=== PATIENT | male | born 1980 ===

== ENCOUNTER 2016-06-15 15:17 | Inpatient (IN) | payer OTHER ==
--- NOTE | 2016-06-15 15:44 | ED PDOC ---
Arrival/HPI <Paco Gloria - Last Filed: 06/15/16 17:25> <Navin Sahni - Last Filed: 06/15/16 19:29> - General Chief Complaint: Medical Clearance Time Seen by Provider: 06/15/16 15:20 - History of Present Illness Narrative History of Present Illness (Text): 06/15/16 15:20 35 y/o male, no pmh, nkda, c/o lt. sided facial weakness with unable to puff the cheek with slurred speech x 3 days with no head or facial injury. Pt. stated that he feels fine but the lt. sided facial cheek is unable to puff completely with slurred speech but no difficulty to though process, no numbness or tingling, no change in the taste, no dizziness or headache, no palpitation, no insect bites or traveling outside of the [facility] for the past 2 months, no fever or chills, no night sweat, no dizziness, no rash, no other medical or psychological complaints. (Navin Sahni) Past Medical History - Provider Review Nursing Documentation Reviewed: Yes - Infectious Disease Hx of Infectious Diseases: None - Psychiatric Hx Substance Use: No <Navin Sahni - Last Filed: 06/15/16 19:29> Family/Social History - Physician Review Nursing Documentation Reviewed: Yes Family/Social History: Unknown Family HX Smoking Status: Light Smoker < 10 Cigarettes Daily Hx Alcohol Use: Yes Frequency of alcohol use: Socially Hx Substance Use: No <Navin Sahni - Last Filed: 06/15/16 19:29> Allergies/Home Meds <Paco Gloria - Last Filed: 06/15/16 17:25> <Navin Sahni - Last Filed: 06/15/16 19:29> Allergies/Adverse Reactions: Allergies No Known Allergies Allergy (Verified 06/15/16 15:20) Home Medications: Home Meds Medication Instructions Recorded Confirmed No Known Home Med 06/15/16 06/15/16 Review of Systems - Review of Systems Constitutional: absent: Fatigue, Fevers Eyes: absent: Vision Changes ENT: absent: Hearing Changes Respiratory: absent: Cough, Sputum Cardiovascular: absent: Chest Pain Gastrointestinal: absent: Abdominal Pain, Nausea, Vomiting Musculoskeletal: absent: Arthralgias, Back Pain, Neck Pain, Joint Swelling, Myalgias Neurological: Focal Weakness, Facial Droop. absent: Headache, Dizziness, Gait Changes, Speech Changes, Disequilibrium, Seizure Endocrine: absent: Diaphoresis Hemo/Lymphatic: absent: Adenopathy <Navin Sahni - Last Filed: 06/15/16 19:29> Physical Exam Vital Signs Reviewed: Yes Temperature: Afebrile Blood Pressure: Normal Pulse: Regular Respiratory Rate: Normal Appearance: Positive for: Well-Appearing, Non-Toxic, Comfortable Pain Distress: None Mental Status: Positive for: Alert and Oriented X 3 - Systems Exam Head: Present: Atraumatic, Normocephalic Pupils: Present: PERRL Extroacular Muscles: Present: EOMI Conjunctiva: Present: Normal Mouth: Present: Moist Mucous Membranes Nose (External): Present: Atraumatic. No: Abrasion, Contusion, Laceration Nose (Internal): Present: Normal Inspection, No Active Bleeding. No: Rhinorrhea , Septal Hematoma, Epistaxis Neck: Present: Normal Range of Motion, Trachea Midline. No: MIDLINE TENDERNESS , Lymphadenopathy Respiratory/Chest: Present: Clear to Auscultation, Good Air Exchange. No: Respiratory Distress, Accessory Muscle Use Cardiovascular: Present: Regular Rate and Rhythm, Normal S1, S2. No: Murmurs Abdomen: Present: Normal Bowel Sounds. No: Tenderness, Distention, Peritoneal Signs, Rebound, Guarding Back: Present: Normal Inspection Upper Extremity: Present: Normal Inspection. No: Cyanosis, Edema Lower Extremity: Present: Normal Inspection. No: Edema Neurological: Present: GCS=15, Motor Func Grossly Intact, Gait Normal, Memory Normal, Other (unable to puff the left facial cheek and there is leaking air, there is no tongue deviation. ). No: Speech Normal (mild slurred speech) Skin: Present: Warm, Dry, Normal Color. No: Rashes Psychiatric: Present: Alert, Oriented x 3, Normal Insight, Normal Concentration <Navin Sahni - Last Filed: 06/15/16 19:29> Vital Signs Temp Pulse Resp BP Pulse Ox 06/15/16 18:26 65 16 136/72 99 06/15/16 16:59 71 16 125/74 99 06/15/16 15:18 98.4 F 75 16 129/76 99 Medical Decision Making <Paco Gloria - Last Filed: 06/15/16 17:25> - Lab Interpretations I have reviewed the lab results: Yes Interpretation: Abnormal lab values (CK 541) - RAD Interpretation Otolaryngology Rep: Radiologist - EKG Interpretation Interpreted by ED Physician: Yes Type: 12 lead EKG Comparison: No previous EKG avail. <Navin Sahni Kristi - Last Filed: 06/15/16 19:29> ED Course and Treatment: 06/15/16 17:25 Patient seen and examined by with PA. Patient has upsetter helper present. On exam he has mild left sided facial droop. Reports sudden onset. On exam, slurred speech noted as well. No focal weakness noted in arms or legs, no gait instability. Denies preceding uri symptoms, denies fever or chills. No dental pain or facial pain or rash. Cannot exclude cva as acute onset of facial droop/symptoms, NOT A TPA candidate as symptoms for several days. (Paco Gloria) 06/15/16 15:40 Cove palsy vs. Intracranial tumor vs. stroke vs. mass effect vs. lymes disease -CT head/swallow screen/cadiac monitor -labs/cardiac troponin and lymes titre -IVF/fall risk -Discussed with Dr. Gloria and he will evaluate the patient as well. -NIHSS is low risk score: 2 -Pt. has focal deficits but will obtain CT to rule out tumor vs. stroke vs. mass effect. 06/15/16 16:51 -CT Head show no acute findings, aspirin 325mg po ordered. -Labs show: CK 541, IVF ordered. -Ekg show: NSR @ 70 BPM, no ST elevation or depression, no T wave inversion, no heart blocks, no previous ekg available for comparison. -Chest x-ray show no active disease -I can not completely rule out if there is bells palsy vs. stroke (which is less likely) vs. lyme disease which I discussed with Dr. Gloria, we will admit him to telemetry for further evaluation with neurologist consult 06/15/16 17:29 -Dr. Brenner (medicine oncall) request to give the case to the hospitalist cotton baler -I discussed all labs and radiology results with the patient and the on the bed side, not a TPA candidate and agreed to be admitted for further evaluation. 06/15/16 19:18 -I spoke to Dr. Chow, medical screener, discussed about the case/labs/radiology result which I will speak to Dr. Fuentes as well about the case. 06/15/16 19:29 -I spoke to Dr. Fuentes about the case/labs/radiology results and discussion with the resident, he will follow up the case. (Navin Sahni) - Lab Interpretations Lab Results: 06/15/16 16:08 06/15/16 16:08 Lab Results 06/15/16 16:08: Sodium 141, Potassium 3.6, Chloride 104, Carbon Dioxide 27, Anion Gap 14, BUN 9, Creatinine 0.5, Est GFR ( Amer) > 60, Est GFR (Non- Af Amer) > 60, Random Glucose 137 H, Calcium 9.4, Total Bilirubin 0.8, AST 59, ALT 63 H, Alkaline Phosphatase 75, Lactate Dehydrogenase 471, Total Creatine Kinase 541 H, CK-MB (CK-2) 2.3, CK-MB (CK-2) % Cancelled, Troponin I < 0.01, Total Protein 8.3, Albumin 4.2, Globulin 4.1, Albumin/Globulin Ratio 1.0 L 06/15/16 16:08: Urine Color Yellow, Urine Appearance Clear, Urine pH 6.5, Ur Specific [place] 1.020, Urine Protein Negative, Urine Glucose (UA) Negative, Urine Ketones Negative, Urine Blood Negative, Urine Nitrate Negative, Urine Bilirubin Negative, Urine Urobilinogen 0.2, Ur Leukocyte Esterase Negative 06/15/16 16:08: WBC 8.9, RBC 4.40, Hgb 13.4 L, Hct 38.1 L, MCV 86.6, MCH 30.5, MCHC 35.2, RDW 13.4, Plt Count 269, MPV 9.7, Gran % 49.5 L, Lymph % (Auto) 35.3 H, [place] % (Auto) 8.7 H, Eos % (Auto) 6.2 H, Baso % (Auto) 0.3, Gran # 4.41, Lymph # 3.2, [place] # 0.8 H, Eos # 0.6, Baso # 0.03 - RAD Interpretation Radiology Orders: 06/15/16 15:37 HEAD W/O CONTRAST [CT] Stat 06/15/16 16:50 CHEST PORTABLE [RAD] Stat CT Head: Normal CT of the head: Chest x-ray: (Navin Sahni) - EKG Interpretation EKG Interpretation (Text): 06/15/16 16:51 NSR @ 70 BPM, no ST elevation or depression, no T wave inversion, no heart blocks, no previous ekg available for comparison. (Navin Sahni) - Medication Orders Current Medication Orders: Sodium Chloride (Sodium Chloride 0.9%) 1,000 mls @ 100 mls/hr IV .Q10H JUANA Last Admin: 06/15/16 16:05 Dose: 100 mls/hr Discontinued Medications Aspirin (Aspirin) 325 mg PO STAT STA Stop: 06/15/16 16:29 Last Admin: 06/15/16 16:54 Dose: 325 mg NIHSS Scale (Jay) Time Performed: 15:40 - How Severe is the Stoke Baseline Level of Consciousness: 0=Alert LOC to Questions: 0=Both comments correct LOC to commands: 0=Obeys both correctly Best Gaze: 0=Normal Visual: 0=No visual loss Facial: 1=Minor asymmetry Motor Arm - Left: 0=No drift Motor Arm - Right: 0=No drift Motor Leg - Left: 0=No drift Motor Leg - Right: 0=No drift Limb Ataxia: 0=Absent Sensory: 0=Normal Best Language: 0=No aphasia Dysarthia: 1=Mild to moderate slurring Extinction & Inattention (Neglect): 0=Normal, no object Score: 2 Risk Level: Minor Stroke Risk <Navin Sahni - Last Filed: 06/15/16 19:29> - PA / DIE REPAIR / Resident Statement SHERRY has reviewed & agrees with the documentation as recorded. SHERRY has examined the patient and agrees with the treatment plan. <Paco Gloria - Last Filed: 06/15/16 17:25> - PA / DIE REPAIR / Resident Statement SHERRY has reviewed & agrees with the documentation as recorded. SHERRY has examined the patient and agrees with the treatment plan. <Navin Sahni - Last Filed: 06/15/16 19:29> Disposition/Present on Arrival <Paco Gloria - Last Filed: 06/15/16 17:25> - Present on Arrival Any Indicators Present on Arrival: No History of DVT/PE: No History of Uncontrolled Diabetes: No Urinary Catheter: No History of Decub. Ulcer: No History Surgical Site Infection Following: None - Disposition Have Diagnosis and Disposition been Completed?: Yes Disposition Time: 16:29 Patient Plan: Admission, Telemetry <Navin Sahni - Last Filed: 06/15/16 19:29> - Disposition Diagnosis: Facial weakness, Slurred speech Disposition: HOSPITALIZED Patient Problems: Current Active Problems Problem Status Onset Facial weakness Acute Slurred speech Acute Condition: STABLE
[2016-06-15] MEDS ORDERED: Sodium Chloride 0.9% 1,000 ML IV SCH (15:45)
[2016-06-15 16:18] LABS: ADD MANUAL DIFF? NO
--- NOTE | 2016-06-15 16:19 | CT ---
PROCEDURE: CT HEAD WITHOUT CONTRAST. HISTORY: unable to puff lt. sided cheek x 3 days, slurred COMPARISON: None available. TECHNIQUE: Axial computed tomography images were obtained through the head/brain without intravenous contrast. Radiation dose: Total exam DLP = 801.39 mGy-cm. This CT exam was performed using one or more of the following dose reduction techniques: Automated exposure control, adjustment of the mA and/or kV according to patient size, and/or use of iterative reconstruction technique. FINDINGS: HEMORRHAGE: No intracranial hemorrhage. BRAIN: No mass effect or edema. No atrophy or chronic microvascular ischemic changes. VENTRICLES: Unremarkable. No hydrocephalus. CALVARIUM: Unremarkable. PARANASAL SINUSES: Unremarkable as visualized. No significant inflammatory changes. MASTOID AIR CELLS: Unremarkable as visualized. No inflammatory changes. OTHER FINDINGS: None. IMPRESSION: Normal CT of the Head.
[2016-06-15 16:29] LABS: BASO # 0.03 K/mm3 (0.0-2.0); BASO % 0.3 % (0.0-3.0); EOS # 0.6 (0.0-0.7); EOS % 6.2 % (1.5-5.0); GRAN # 4.41 (1.4-6.5); GRAN % 49.5 % (50.0-68.0); HEMATOCRIT 38.1 % (42.0-52.0); LYMPH # 3.2 (1.2-3.4); LYMPH % 35.3 % (22.0-35.0); MEAN CELL VOLUME 86.6 fL (80.0-105.0); MEAN CORPUSCULAR HEMOGLOBIN 30.5 pg (25.0-35.0); MEAN CORPUSCULAR HGB CONC 35.2 g/dl (31.0-37.0); MEAN PLATELET VOLUME 9.7 fl (7.0-11.0); MONO # 0.8 (0.1-0.6); MONO % 8.7 % (1.0-6.0); PLATELET COUNT 269 10^3/uL (120.0-450.0); RED CELL DISTRIBUTION WIDTH 13.4 % (11.5-14.5); WHITE BLOOD COUNT 8.9 10^3/ul (4.5-11.0)
[2016-06-15 16:39] LABS: PH,URINE 6.5 (4.7-8.0); URINE BILIRUBIN NEGATIVE (NEGATIVE); URINE BLOOD NEGATIVE (NEGATIVE); URINE GLUCOSE (UA) NEGATIVE (NEGATIVE); URINE KETONE NEGATIVE (NEGATIVE); URINE LEUKOCYTE ESTERASE NEGATIVE Leu/uL (NEGATIVE); URINE PROTEIN NEGATIVE mg/dL (<30 mg/dL); URINE UROBILINOGEN 0.2 E.U./dL (<1 E.U./dL)
[2016-06-15 16:40] LABS: ALKALINE PHOSPHATASE 75 U/L (38-133); ALT/SGPT 63 U/L (7-56); AST/SGOT 59 U/L (15-59); BILIRUBIN,TOTAL 0.8 mg/dL (0.2-1.3); BLOOD UREA NITROGEN 9 mg/dL (7-21); CALCIUM 9.4 mg/dL (8.4-10.5); CARBON DIOXIDE 27 mmol/L (21-33); CHLORIDE 104 mmol/L (98-107); GFR AFRICAN-AMERICAN > 60; GLUCOSE,RANDOM 137 mg/dL (70-110); POTASSIUM 3.6 mmol/L (3.6-5.0); SODIUM 141 mmol/L (132-148); TOTAL PROTEIN 8.3 g/dL (5.8-8.3)
[2016-06-15 16:42] LABS: URINE APPEARANCE CLEAR (CLEAR); URINE COLOR YELLOW (YELLOW)
[2016-06-15 16:55] LABS: TROPONIN I < 0.01 ng/mL
--- NOTE | 2016-06-15 18:05 | CARD ---
APPROVED REPORT EKG Measurement Heart [id number] MS 130P13 [id number] <Conclusion> Normal sinus rhythm Normal ECG
--- NOTE | 2016-06-15 20:07 | CP.PCM.HP ---
<Daquan Best - Last Filed: 06/15/16 20:41> History of Present Illness - History of Present Illness History of Present Illness: CC: "Left part of lips are numb" HPI: Pt is a 35 y/o male with no reported past medical history who presents to the ED with complaints of numbness on the left aspect of his lips that began 4 days ago. Pt describes the symptoms as slightly numb and weak. He reports that when he tries to puff out his cheeks, he cannot fully purse his lips on the left side. He also reports that 3 days ago, he felt that his left eyelid felt heavy. Pt reports that he has never experienced these symptoms before. He reports that the symptoms have not worsened or improved since onset, and he came in today to see what the cause was. 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 He denies recent travel. He also denies any recent illness. Pt denies headache, dizziness, changes in vision, weakness in arms and legs, confusion, fever, chills, chest pain, palpitations, shortness of breath, nausea , and vomiting. PMHx: none reported Past Surgical Hx: none reported Allergies: NKDA Home medications: None reported Social Hx: reports smoking 1-2 cigarettes/day, reports that he drinks alcohol occasionally at parties, denies illicit drug use Family Hx: no significant past medical hx reported Present on Admission - Present on Admission Any Indicators Present on Admission: No Review of Systems - Constitutional Constitutional: absent: Chills, Fatigue, Fever - EENT Eyes: absent: Blurred Vision, Change in Vision Ears: absent: Disequilibrium, Dizziness Nose/Mouth/Throat: absent: Nasal Congestion, Nasal Trauma - Cardiovascular Cardiovascular: absent: Chest Pain, Dyspnea, Leg Edema, Palpitations - Respiratory Respiratory: absent: Cough, Wheezing - Gastrointestinal Gastrointestinal: absent: Abdominal Pain, Constipation, Diarrhea, Vomiting - Genitourinary Genitourinary: absent: Dysuria - Musculoskeletal Musculoskeletal: absent: Atrophy, Back Pain - Integumentary Integumentary: absent: Bleeding Lesions, Rash - Neurological Neurological: Numbness, Focal Weakness. absent: Syncope Additional comments: reports numbness and weakness on left aspect of lips - Psychiatric Psychiatric: absent: Anxiety, Depression - Hematologic/Lymphatic Hematologic: absent: Easy Bleeding, Easy Bruising Past Patient History - Infectious Disease Hx of Infectious Diseases: None - Past Social History Smoking Status: Light Smoker < 10 Cigarettes Daily - PSYCHIATRIC Hx Substance Use: No - SURGICAL HISTORY Hx Surgeries: No Meds Allergies/Adverse Reactions: Allergies Allergy/AdvReac Type Severity Reaction Status Date / Time No Known Allergies Allergy Verified 06/15/16 15:20 Physical Exam - Constitutional Appears: No Acute Distress - Head Exam Head Exam: ATRAUMATIC, NORMOCEPHALIC - Eye Exam Eye Exam: EOMI Pupil Exam: Unequal Additional comments: Sluggish right pupil, right pupil size greater than left - ENT Exam ENT Exam: Mucous Membranes Moist. absent: Mucous Membranes Dry - Neck Exam Neck exam: Positive for: Normal Inspection - Respiratory Exam Respiratory Exam: Clear to Auscultation Bilateral. absent: Rales, Rhonchi, Wheezes - Cardiovascular Exam Cardiovascular Exam: +S1, +S2. absent: Gallop, Rubs - GI/Abdominal Exam GI & Abdominal Exam: Soft. absent: Distended, Guarding, Tenderness - Extremities Exam Extremities exam: Positive for: full ROM. Negative for: pedal edema - Neurological Exam Neurological exam: Alert, Oriented x3 - Expanded Neurological Exam Expanded Patient oriented to: person, place, time Speech: Fluid Speech Cranial nerves: EOM's Intact: Normal, Facial [place]y w/Forehead Movement: Normal , Facial [place] w/o Forehead Movement: Normal, Facial Sensation: Normal, Nystagmus: Normal, Tongue Deviation: Abnormal Left (When pt rolls his tongue, it deviates to the left) Ataxia: Yes Cerebellar Function: Finger to Nose: Normal Sensory exam: Lower Extremity Light Touch: Normal, Upper Extremity Light Touch: Normal Neuro motor strength exam: Left Upper Extremity: 5, Right Upper Extremity: 5, Left Lower Extremity: 5, Right Lower Extremity: 5 - Psychiatric Exam Psychiatric exam: Normal Affect, Normal Mood - Skin Skin Exam: Normal Color, Warm Results - Vital Signs Recent Vital Signs: Last Vital Signs Temp 98.4 F 06/15/16 15:18 Pulse 65 06/15/16 18:26 Resp 16 06/15/16 18:26 BP 136/72 06/15/16 18:26 Pulse Ox 99 06/15/16 18:26 - Labs Result Diagrams: 06/15/16 16:08 06/15/16 16:08 Assessment & Plan - Assessment and Plan (Free Text) Assessment: Left Sided Facial Numbness: Head CT- normal CT of head (please see full report) EKG - NSR (please see full report) Neurology, Dr. Darrell Nam, consulted. Help appreciated. Prednisone 60 mg po qd Lyme IgG, IgM pending Prophylactic Measures: DVT: SCDs, ambulate as tolerated GI: Protonix 40 mg po qd <Bunny Fuentes P - Last Filed: 06/26/16 19:36> Results - Vital Signs Recent Vital Signs: Last Vital Signs Temp 98.2 F 06/16/16 18:00 Pulse 81 06/16/16 18:00 Resp 16 06/16/16 18:00 BP 100/66 06/16/16 18:00 Pulse Ox 99 06/16/16 06:00 - Labs Result Diagrams: 06/15/16 16:08 06/15/16 16:08 Attending/Attestation - Attestation I have personally seen and examined this patient.: Yes I have fully participated in the care of the patient.: Yes I have reviewed all pertinent clinical information: Yes
[2016-06-15 22:31] VITALS: BMI 30.4
[2016-06-15] MEDS ORDERED: Pneumococcal 23-Valent Vaccine IM ONE (22:31)
[2016-06-16 06:00] VITALS: O2SAT 99
[2016-06-16] MEDS ORDERED: Pantoprazole 40 mg EC Tab PO SCH (06:30)
--- NOTE | 2016-06-16 07:19 | RAD ---
HISTORY: medical clearance COMPARISON: None available TECHNIQUE: Chest, one view. FINDINGS: LUNGS: No focal consolidation. Please note that chest x-ray has limited sensitivity for the detection of pulmonary masses. PLEURA: No significant pleural effusion identified. No definite pneumothorax . CARDIOVASCULAR: The cardiomediastinal silhouette appears within normal limits of size. OSSEOUS STRUCTURES: No acute osseous abnormality identified. VISUALIZED UPPER ABDOMEN: Unremarkable. OTHER FINDINGS: None. IMPRESSION: No focal consolidation, significant pleural effusion, or definite pneumothorax identified.
--- NOTE | 2016-06-16 16:55 | CP.PCM.DIS ---
<Triny Smith - Last Filed: 06/17/16 00:01> Provider - Provider Date of Admission: 06/15/16 18:09 Attending physician: Jayson Mccrary MD Primary care physician: NO PRIMARY CARE PROVIDER Consults: Dr. Nam V, neurology Time Spent in preparation of Discharge (in minutes): 35 Hospital Course - Lab Results Lab Results: Most Recent Lab Values WBC 8.9 10^3/ul (4.5-11.0) 06/15/16 16:08 RBC 4.40 10^6/uL (3.5-6.1) 06/15/16 16:08 Hgb 13.4 gm/dL (14.0-18.0) L 06/15/16 16:08 Hct 38.1 % (42.0-52.0) L 06/15/16 16:08 MCV 86.6 fL (80.0-105.0) 06/15/16 16:08 MCH 30.5 pg (25.0-35.0) 06/15/16 16:08 MCHC 35.2 g/dl (31.0-37.0) 06/15/16 16:08 RDW 13.4 % (11.5-14.5) 06/15/16 16:08 Plt Count 269 10^3/uL (120.0-450.0) 06/15/16 16:08 MPV 9.7 fl (7.0-11.0) 06/15/16 16:08 Gran % 49.5 % (50.0-68.0) L 06/15/16 16:08 Lymph % (Auto) 35.3 % (22.0-35.0) H 06/15/16 16:08 [place] % (Auto) 8.7 % (1.0-6.0) H 06/15/16 16:08 Eos % (Auto) 6.2 % (1.5-5.0) H 06/15/16 16:08 Baso % (Auto) 0.3 % (0.0-3.0) 06/15/16 16:08 Gran # 4.41 (1.4-6.5) 06/15/16 16:08 Lymph # 3.2 (1.2-3.4) 06/15/16 16:08 [place]ison # 0.8 (0.1-0.6) H 06/15/16 16:08 Eos # 0.6 (0.0-0.7) 06/15/16 16:08 Baso # 0.03 K/mm3 (0.0-2.0) 06/15/16 16:08 Sodium 141 mmol/L (132-148) 06/15/16 16:08 Potassium 3.6 mmol/L (3.6-5.0) 06/15/16 16:08 Chloride 104 mmol/L (98-107) 06/15/16 16:08 Carbon Dioxide 27 mmol/L (21-33) 06/15/16 16:08 Anion Gap 14 (10-20) 06/15/16 16:08 BUN 9 mg/dL (7-21) 06/15/16 16:08 Creatinine 0.5 mg/dL (0.5-1.4) 06/15/16 16:08 Est GFR ( Amer) > 60 06/15/16 16:08 Est GFR (Non-Af Amer) > 60 06/15/16 16:08 Random Glucose 137 mg/dL (70-110) H 06/15/16 16:08 Calcium 9.4 mg/dL (8.4-10.5) 06/15/16 16:08 Total Bilirubin 0.8 mg/dL (0.2-1.3) 06/15/16 16:08 AST 59 U/L (15-59) 06/15/16 16:08 ALT 63 U/L (7-56) H 06/15/16 16:08 Alkaline Phosphatase 75 U/L (38-133) 06/15/16 16:08 Lactate Dehydrogenase 471 U/L (333-699) 06/15/16 16:08 Total Creatine Kinase 541 U/L (35-230) H 06/15/16 16:08 CK-MB (CK-2) 2.3 ng/mL (0.0-3.6) 06/15/16 16:08 CK-MB (CK-2) % Cancelled 06/15/16 16:08 Troponin I < 0.01 ng/mL 06/15/16 16:08 Total Protein 8.3 g/dL (5.8-8.3) 06/15/16 16:08 Albumin 4.2 g/dL (3.0-4.8) 06/15/16 16:08 Globulin 4.1 gm/dL 06/15/16 16:08 Albumin/Globulin Ratio 1.0 (1.1-1.8) L 06/15/16 16:08 Urine Color Yellow (YELLOW) 06/15/16 16:08 Urine Appearance Clear (CLEAR) 06/15/16 16:08 Urine pH 6.5 (4.7-8.0) 06/15/16 16:08 Ur Specific [place] 1.020 (1.005-1.035) 06/15/16 16:08 Urine Protein Negative mg/dL (<30 mg/dL) 06/15/16 16:08 Urine Glucose (UA) Negative mg/dL (NEGATIVE) 06/15/16 16:08 Urine Ketones Negative mg/dL (NEGATIVE) 06/15/16 16:08 Urine Blood Negative (NEGATIVE) 06/15/16 16:08 Urine Nitrate Negative (NEGATIVE) 06/15/16 16:08 Urine Bilirubin Negative (NEGATIVE) 06/15/16 16:08 Urine Urobilinogen 0.2 E.U./dL (<1 E.U./dL) 06/15/16 16:08 Ur Leukocyte Esterase Negative Cindi/uL (NEGATIVE) 06/15/16 16:08 - Hospital Course Hospital Course: 35 y/o male with no reported past medical history who presents to the ED with complaints of numbness on the left aspect of his lips that began 4 days prior, and that he felt that his left eyelid felt heavy three days prior. NIHSS stroke score is zero, vitals stable, Head CT is "normal CT of head," NSR of 70 on EKG, troponin, CXR and D-Dimer unremarkable. Pt transferred to telemetry for facial droop and CVA. Prednisone 60 mg po qd administered once and Lyme IgG, IgM ordered. Pt d/c in stable condition after evaluation by neurology consult, with instructions to follow up with PMD, and new script for ASA 81 mg PO daily. Discharge Exam - Head Exam Head Exam: ATRAUMATIC, NORMOCEPHALIC - Eye Exam Eye Exam: EOMI, Normal appearance - ENT Exam ENT Exam: Mucous Membranes Moist, Normal External Ear Exam - Respiratory Exam Respiratory Exam: Clear to PA & Lateral, UNREMARKABLE - Cardiovascular Exam Cardiovascular Exam: +S1, +S2. absent: Bradycardia - GI/Abdominal Exam GI & Abdominal Exam: Soft. absent: Tenderness - Exam External exam: absent: Ecchymosis, Erythema - Extremities Exam Extremities exam: normal capillary refill, pedal pulses present - Neurological Exam Neurological exam: Alert, CN II-XII Intact, Oriented x3 Additional comments: muscle strength 5/5 in all four extremities - Skin Skin Exam: Intact, Normal Color Discharge Plan - Discharge Medications Prescriptions: Aspirin [Adult Low Dose Aspirin EC] 81 mg PO DAILY #14 tablet.dr - Follow Up Plan Condition: STABLE Disposition: HOME/ ROUTINE Additional Instructions: You are discharged home. Please return to emergency department for worsening of symptoms. Please take aspirin 81 mg by mouth daily, and prescription is electronically sent to the pharmacy indicated through conversation with you, [facility] on [phone]. Please see your primary medical doctor of choice within a week. Referrals: PCP,NO [Primary Care Provider] - <Jayson Mccrary MD - Last Filed: 06/19/16 07:37> Provider - Provider Date of Admission: 06/15/16 18:09 Attending physician: Jayson Mccrary MD Primary care physician: NO PRIMARY CARE PROVIDER Hospital Course - Lab Results Lab Results: Most Recent Lab Values WBC 8.9 10^3/ul (4.5-11.0) 06/15/16 16:08 RBC 4.40 10^6/uL (3.5-6.1) 06/15/16 16:08 Hgb 13.4 gm/dL (14.0-18.0) L 06/15/16 16:08 Hct 38.1 % (42.0-52.0) L 06/15/16 16:08 MCV 86.6 fL (80.0-105.0) 06/15/16 16:08 MCH 30.5 pg (25.0-35.0) 06/15/16 16:08 MCHC 35.2 g/dl (31.0-37.0) 06/15/16 16:08 RDW 13.4 % (11.5-14.5) 06/15/16 16:08 Plt Count 269 10^3/uL (120.0-450.0) 06/15/16 16:08 MPV 9.7 fl (7.0-11.0) 06/15/16 16:08 Gran % 49.5 % (50.0-68.0) L 06/15/16 16:08 Lymph % (Auto) 35.3 % (22.0-35.0) H 06/15/16 16:08 Dav[place] % (Auto) 8.7 % (1.0-6.0) H 06/15/16 16:08 Eos % (Auto) 6.2 % (1.5-5.0) H 06/15/16 16:08 Baso % (Auto) 0.3 % (0.0-3.0) 06/15/16 16:08 Gran # 4.41 (1.4-6.5) 06/15/16 16:08 Lymph # 3.2 (1.2-3.4) 06/15/16 16:08 [place] # 0.8 (0.1-0.6) H 06/15/16 16:08 Eos # 0.6 (0.0-0.7) 06/15/16 16:08 Baso # 0.03 K/mm3 (0.0-2.0) 06/15/16 16:08 Sodium 141 mmol/L (132-148) 06/15/16 16:08 Potassium 3.6 mmol/L (3.6-5.0) 06/15/16 16:08 Chloride 104 mmol/L (98-107) 06/15/16 16:08 Carbon Dioxide 27 mmol/L (21-33) 06/15/16 16:08 Anion Gap 14 (10-20) 06/15/16 16:08 BUN 9 mg/dL (7-21) 06/15/16 16:08 Creatinine 0.5 mg/dL (0.5-1.4) 06/15/16 16:08 Est GFR ( Amer) > 60 06/15/16 16:08 Est GFR (Non-Af Amer) > 60 06/15/16 16:08 Random Glucose 137 mg/dL (70-110) H 06/15/16 16:08 Calcium 9.4 mg/dL (8.4-10.5) 06/15/16 16:08 Total Bilirubin 0.8 mg/dL (0.2-1.3) 06/15/16 16:08 AST 59 U/L (15-59) 06/15/16 16:08 ALT 63 U/L (7-56) H 06/15/16 16:08 Alkaline Phosphatase 75 U/L (38-133) 06/15/16 16:08 Lactate Dehydrogenase 471 U/L (333-699) 06/15/16 16:08 Total Creatine Kinase 541 U/L (35-230) H 06/15/16 16:08 CK-MB (CK-2) 2.3 ng/mL (0.0-3.6) 06/15/16 16:08 CK-MB (CK-2) % Cancelled 06/15/16 16:08 Troponin I < 0.01 ng/mL 06/15/16 16:08 Total Protein 8.3 g/dL (5.8-8.3) 06/15/16 16:08 Albumin 4.2 g/dL (3.0-4.8) 06/15/16 16:08 Globulin 4.1 gm/dL 06/15/16 16:08 Albumin/Globulin Ratio 1.0 (1.1-1.8) L 06/15/16 16:08 Urine Color Yellow (YELLOW) 06/15/16 16:08 Urine Appearance Clear (CLEAR) 06/15/16 16:08 Urine pH 6.5 (4.7-8.0) 06/15/16 16:08 Ur Specific [place] 1.020 (1.005-1.035) 06/15/16 16:08 Urine Protein Negative mg/dL (<30 mg/dL) 06/15/16 16:08 Urine Glucose (UA) Negative mg/dL (NEGATIVE) 06/15/16 16:08 Urine Ketones Negative mg/dL (NEGATIVE) 06/15/16 16:08 Urine Blood Negative (NEGATIVE) 06/15/16 16:08 Urine Nitrate Negative (NEGATIVE) 06/15/16 16:08 Urine Bilirubin Negative (NEGATIVE) 06/15/16 16:08 Urine Urobilinogen 0.2 E.U./dL (<1 E.U./dL) 06/15/16 16:08 Ur Leukocyte Esterase Negative Cindi/uL (NEGATIVE) 06/15/16 16:08 Lyme Disease IgG Ab (IFA) Positive (NEGATIVE) 06/15/16 16:08 Lyme Disease IgM Ab Negative (NEGATIVE) 06/15/16 16:08 Attending/Attestation - Attestation I have personally seen and examined this patient.: Yes I have fully participated in the care of the patient.: Yes I have reviewed all pertinent clinical information, including history, physical exam and plan: Yes Notes (Text): 06/19/16 07:33 Patient was seen and examined with medical records director .Agreed with resident assessment and plan. 35 y/o male with past medical history of chronic alcohol abuse was admitted with numbness at left corner of mouth, no history of facial deviation, no weakness involving upper and lower extremities, no other sensory symptoms, there was no lose of taste.There is no history of dysphagia or dysarthria.CT scan of head was negative.Patient is ambulatory and is tolerating diet.Telemetry was unremarkable.Neuro examination at the time of discharge was normal. The issue of ongoing alcohol abuse and chronic smoking was discussed in detail with patient. Management plan was discussed in detail with patient Education was provided. 06/19/16 07:36
[2016-06-16 18:08] VITALS: BP 100/66; RESP 16; TEMP 98.2
[2016-06-16 19:56] VITALS: PULSE 81
--- NOTE | 2016-06-16 20:06 | CON ---
DATE: 06/16/2016 HISTORY OF PRESENT ILLNESS: This is a 35-year-old male with family, came to the hospital wi th numbness of the left side of his lips and face. Symptoms started 2-3 days ago and the patient, wh en he drinks, water drips on the left angle of the mouth. CAT scan of the head was done, which was r eported negative. PAST MEDICAL HISTORY: Not significant. ALLERGIES: No known drug allergies. SOCIAL HISTORY: Smokes 1-2 cigarettes per day, drinks occasionally. PHYSICAL EXAMINATION: VITAL SIGNS: Blood pressure 136/72. NECK: Supple. HEENT: Normocephalic, atraumatic. NECK: Supple. NEUROLOGIC: Alert, awake, oriented x 3. No aphasia. Cranial nerves II through XII were tested. Mi ld left facial lower motor neuron time paresis and no visual problems. Motor examination: Moves all the extremities equally, 5/5. Tone normal. Deep tendon reflexes 1+. Both plantars are downgoing. Sensory appears intact. Cerebellar gait deferred. 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 Continue present management. Discussed him for massaging the left side of the face. We will follow up. Teddy Nam MD cc: [id number] TT: 06/16/2016 20:06:28 Confirmation # [id number] Dictation # [id number]
[2016-06-16 20:43] LABS: LYME IGG POSITIVE (NEGATIVE)
[2016-06-16 20:59] LABS: LYME IGM NEGATIVE (NEGATIVE)
== END 2016-06-16 20:36 | disposition home or self-care (01) | DRG 74 ==
LOC: ED 15:17 → ERH 18:09 → 2RNO 22:16
PROVIDERS: ADMIT Hospitalist; ATTEND Internal Medicine
DX: G51.0 Bell's palsy (principal); F10.10 Alcohol abuse, uncomplicated; F17.210 Nicotine dependence, cigarettes, uncomplicated